=== PATIENT | female | born 1990 | race Caucasian/White ===

== ENCOUNTER 2018-10-24 06:15 | Day surgery (SDC) | payer BC, OTHER ==
[~2018-10-24] VITALS: Ht 162.6 cm; Wt 85.9 kg
[2018-10-24] VITALS (7 sets, daily range): BP systolic 104–114; BP diastolic 60–76; PULSE 58–66; RESP 14–25; Ht 162.6 cm; Wt 85.9 kg
[~2018-10-24 06:15] MED LIST: [UNRECOGNIZED DRUG - CODE]
[2018-10-24] MEDS ORDERED: FENTAnyl 50 MCG/ML VIAL ONE (08:40)
[2018-10-24] MEDS ORDERED: MIDAZOLAM 1 MG/ML 2 ML INJ ONE ×2 (08:40)
== END 2018-10-24 10:47 | disposition home or self-care (01) ==
LOC: GIL 06:15
PROVIDERS: ATTEND Internal Medicine Gastroenterology
DX: R19.7 Diarrhea, unspecified (principal); K64.8 Other hemorrhoids
CPT/HCPCS: 45380; 84703; 88305; J2250; J3010; Z7610